=== PATIENT | female | born 1945 | race Caucasian/White ===

== ENCOUNTER → 2016-09-17 | Day surgery (SDC) | payer MEDICARE, OTHER ==
[~2016-09-17] MED LIST: NEURONTIN100 MG PO; PANTOPRAZOLE SO40 MG PO
--- NOTE | ~2016-09-17 | OR ---
Unit #: [id number] #: [id number] Patient: SOHAIL AMADOR [id number] [address] [address] [id number]#: [id number] NAME: SOHAIL AMADOR ROOM: Date of Procedure: 09/17/2016 Admission Date: 09/17/2016 Surgeon: Masoud Wakefield M.D. : 1945 Attending Physician: Masoud Wakefield M.D. OPERATIVE REPORT PROCEDURE PERFORMED Esophagogastroduodenoscopy with biopsies. INDICATIONS FOR PROCEDURE The patient with significant dysphagia, feeling of foreign body sensation in the esophagus. MEDICATIONS Monitored anesthesia. POSTOPERATIVE FINDINGS 1. Small hiatal hernia. No esophagitis, strictures, or rings. No foreign body in the esophagus. 2. Mild gastritis. Biopsies taken. 3. Duodenitis. 4. There was a lot of food residue in the stomach. PLAN Trial of PPIs. Follow up on pathology report. DESCRIPTION OF PROCEDURE The patient was explained of the procedure, risks, and benefits along with risks and benefits of anesthesia. She was brought to the endoscopy room. Propofol anesthesia was given. Bite block was placed. The scope was passed down the mouth into esophagus, stomach, duodenum, and distal duodenum. Findings as described. Biopsies taken. Gently, I pulled the scope out of the patient's mouth. She tolerated the procedure well. No major complications were seen. Dictated by... Laura Merida/ahsan TD: 09/17/2016 16:52 JOB #: [id number] Unit #: [id number] #: [id number] Patient: SOHAIL AMADOR OPERATIVE REPORT Page 1 of 1 X Masoud Wakefield MD X PROCEDURE OPERATIVE NOTE
== END | disposition home or self-care (01) ==
LOC: COPS 06:45
DX: K29.50 Unspecified chronic gastritis without bleeding (principal); K44.9 Diaphragmatic hernia without obstruction or gangrene; K29.80 Duodenitis without bleeding; I50.9 Heart failure, unspecified; F17.210 Nicotine dependence, cigarettes, uncomplicated; Z79.899 Other long term (current) drug therapy; Z90.49 Acquired absence of other specified parts of digestive tract
CPT/HCPCS: 88305; 88312